=== PATIENT | male | born 1970 ===

== ENCOUNTER → 2017-08-16 | Day surgery (SDC) | payer OTHER ==
[~2017-08-16] VITALS: Ht 172.7 cm; Wt 85.0 kg
[~2017-08-16] MED LIST: ALBU2SYP9 NEB; ALBUT/IPRATROP 3MG/0.5MG NEB 3 ML VIAL INH ONE; ALBUT/IPRATROP 3MG/0.5MG NEB 3 ML VIAL ONE; ATROPINE SULFATE 0.1 MG/ML 5ML SYR IV PRN; CEFAZOLIN 2000MG IV PUSH 15 ML IV SCH; DEXAMETHASONE SOD INJ 4 MG/ML VIAL ONE; EpHEDrine SULFATE INJ 50 MG/ML AMP IV PRN; EpINEphrine INJ 1MG/ML AMP 1 MG/ML AMP ONE; FENTANYL CITRATE INJ 50 MCG/1 ML 2 ML VIAL ONE; FLUT0.15 NAE; HYDROmorphone INJ 1 MG/ML SYR IV PRN; LACTATED RINGER'S 1000ML 1,000 ML IV SCH; LIDO 2%/EPINEPHRINE 1:100000 20 ML VIAL INFIL ONE; LIDOCAINE 4% MPF SOAK 5 ML = 1 DOSE TOP ONE; LIDOCAINE HCL 2% 2 ML VIAL (20MG/ML) ONE; MIDAZOLAM HCL 1 MG/ML 2ML VIAL ONE; ONDANSETRON INJ 2 MG/ML 2 ML VIAL IV PRN; ONDANSETRON INJ 2 MG/ML 2 ML VIAL ONE; OXYC-57 PO; OXYCODONE/ACETAMINOPHEN 5-325 TAB PO PRN; PROMETHAZINE HCL INJ 12.5 MG in SODIUM CHLORIDE 0.9% 50ML 50 ML IV PRN; PROPOFOL IV EMULSION 10 MG/ML 20 ML VIAL IV ONE; PRVHFAIN INH; SODIUM CHLORIDE 0.9% 1000ML 1,000 ML IV SCH; SUCCINYLCHOLINE CHLORIDE 20 MG/ML 10 ML VIAL IV ONE
[2017-08-16 09:50] VITALS: Ht 172.7 cm; Wt 85.0 kg
--- NOTE | 2017-08-16 11:40 | History & Physical Bridge Note ---
H&P Re-Evaluation Bridge Note: I have examined the patient, reviewed the History & Physical and in the interval since the performance of the History & Physical I have noted the following changes of clinical significance: No changes noted
--- NOTE | 2017-08-16 11:42 | Discharge Instructions-SurgCtr ---
Discharge Instructions Date of Service Aug 16, 2017. Visit Reason for Visit: Chronic Sinusitis, Polyposis Discharge Discharge Diagnosis / Problem: same Discharge Goals Goal(s): Improve function Activity Recommendations Activity Limitations: resume your previous activity Anesthesia . Post Anesthesia Instructions: If you have had General Anesthesia or IV Sedation: * Do not drive today. * Resume driving when surgeon permits. * Do not make important decisions or sign legal documents today. * Call surgeon for: 1. Temperature elevations greater than 101 degrees F. 2. Uncontrollable pain. 3. Excessive bleeding. 4. Persistent nausea and vomiting. 5. Medication intolerance (nausea, vomiting or rash). * For nausea and vomiting use only clear liquids such as: tea, soda, bouillon until nausea subsides, then gradually increase diet as tolerated. * If you have any concerns or questions, call your surgeon's office. If physician is unavailable and it is an emergency, call 911 or go to the nearest emergency room. . Instructions / Follow-Up Instructions / Follow-Up ACTIVITY RECOMMENDATIONS: * Being up and around is good, but no strenuous activity, heavy lifting or physical exertion for one week. * Keep your head elevated 30 degrees when lying down or sleeping. * Do not blow your nose for 48 hours, sniff back instead. * Avoid hot showers. OVER THE COUNTER MEDICATIONS: * You may use Tylenol * Avoid aspirin or aspirin containing products, e.g. as they may increase bleeding. SPECIAL CARE INSTRUCTIONS: * Expect to have bloody drainage from your nose and/or down your throat for one to three days. Change drip pad as needed. * Begin irrigating your nose with saline solution today, at least six to ten times per day and sniff back to help remove old clots or crust. * You may experience nasal and facial congestion, pain and pressure, this is normal. * Please call with any significant and/or progressive pain, redness, swelling around the eyes, visual changes, fever of 101.5 degrees F, active bleeding or any problems or concerns. * If active bleeding occurs, spray the nose three times at one minute intervals with Afrin spray and call or cell phone: . If unable to reach the doctor, go to the nearest Emergency Department. Special Diet: * Avoid extremely hot fluids. FOLLOW UP VISIT: Follow-up Visit with Dr. Freeman If not already scheduled, please call to schedule. Diet Recommendations Home Diet: no limitations Pending Studies Studies pending at discharge: no Medical Emergencies . Who to Call and When: Medical Emergencies: If at any time you feel your situation is an emergency, please call 911 immediately. . Non-Emergent Contact Non-Emergency issues call your: Primary Care Provider . . "Provider Documentation" section prepared by Gianna Freeman. . [place] Drug Monitoring Program Search Results: no issues identified
--- NOTE | 2017-08-16 12:16 | History and Physical: Surg Cnt ---
History & Physical Date Aug 16, 2017. Chief Complaint polyps History of Present Illness The patient is a 46 year old male with complaints of polyps, loss of smell and taste, sinusitis, headaches, drainage aggravating asthma, s/p FESS in [place] 2014 Additional History Hepatic Disease: No Endocrine Disorder: No Kidney Disease: No Hypertension: No Heart Disease: No Bleeding Tendencies: No Infectious Diseases: No Allergies Coded Allergies: Vancomycin (Verified Allergy, Severe, blistering, swelling of joints, ) Iodine (Verified Allergy, Unknown, ., 08/16/17) Home Medications Scheduled Albuterol Sulf (Ventolin), NEB DAILY Fluticasone Propionate (Nasal) (Flonase Allergy Relief), VENESSA DAILY Scheduled PRN Albuterol (Ventolin Hfa), INH for ASTHMA Oxycodone/Acetaminophen 5MG/325MG (Percocet 5MG/325MG), 1-2 TABLETS PO Q4H PRN for Pain Physical Examination Skin: warm/dry, no rash Eyes: normal inspection, EOMI, sclerae normal ENT: + pertinent finding Head: normocephalic, atraumatic Neck: supple, no adenopathy, trachea midline Respiratory/Chest: lungs clear, normal breath sounds, no respiratory distress Cardiovascular: regular rate, rhythm, no edema, no murmur Abdomen / GI: normal bowel sounds, non tender Back: normal inspection Extremities: normal inspection, normal range of motion Diagnosis chronic sinusitis, polyposis Plan of Treatment endoscopic sinus surgery
--- NOTE | 2017-08-16 12:32 | HISTORY & PHYSICAL EXAMINATION ---
DATE OF ADMISSION: DIAGNOSES: Chronic sinusitis and nasal polyposis. HISTORY OF PRESENT ILLNESS: This 46-year-old male from [facility] presented with recurrent and chronic sinusitis and chronic nasal polyposis. He previously had surgery by another surgeon for polyposis in 2015, but again the polyps grew back. A CT scan showed a totally opacified pansinusitis from the polyps and the patient desires definitive treatment. PAST MEDICAL HISTORY: Medical problems positive for asthma, which is aggravated by the chronic sinusitis. In fact, it has caused moderate persistent asthma. PREVIOUS SURGERIES: Sinus surgery. ALLERGIES: None known. MEDICATIONS: Include Alvesco, Robaxin, Singulair, Ventolin, and fluticasone nasal spray. REVIEW OF SYSTEMS: Positive for low back pain, urinary calculus, asthma with recurrent bronchitis. PHYSICAL EXAMINATION: GENERAL: WNWD male in no acute distress. HEAD: Normocephalic. EYES: Normal. EARS: Tympanic membranes intact. NOSE: Nasal passages show occlusion with polyposis on both sides. THROAT: Oropharynx normal. NECK: Supple. HEART: RRR. LUNGS: Clear. ABDOMEN: Soft. GENITOURINARY: Deferred. EXTREMITIES: Full range of motion. IMAGING STUDIES: The CT scan showed complete opacification of bilateral frontal, bilateral ethmoid, bilateral sphenoid and bilateral maxillary sinus opacification. IMPRESSION: Chronic sinusitis with polyposis. PLAN: For an endoscopic sinus surgery.
--- NOTE | 2017-08-16 14:49 | [facility] Post Operative Brief Note ---
Immediate Operative Summary Operative Date Aug 16, 2017. Pre-Operative Diagnosis Chronic Sinusitis, Polyposis Post-Operative Diagnosis Same Procedure(s) Performed Endoscopic Sinus Surgery with [employer] Navigation, Right & Left Frontal Sinuses , Right &Left Sphenoid Sinuses, Right & Left Total Ethmoidectomies Surgeon Dr. Freeman Medication Assistant Surgeon(s) None Estimated Blood Loss 300ml Findings Consistent with Post-Op Diagnosis Specimens A. Right Ethmoid Contents and Polyp Drains None Anesthesia Type General Complication(s) none Disposition Accompanied Pt To Recovery: yes Disposition: Recovery Room / PACU
--- NOTE | 2017-08-16 15:05 | [facility] Operative Report ---
Operative Report Operative Date Aug 16, 2017. Pre-Operative Diagnosis Chronic Sinusitis, Polyposis Post-Operative Diagnosis Same Procedure(s) Performed Endoscopic Sinus Surgery with [employer] Navigation, Right & Left Frontal Sinuses , Right &Left Sphenoid Sinuses, Right & Left Total Ethmoidectomies Surgeon Dr. Freeman Roller Cleaner Surgeon(s) None Estimated Blood Loss 300ml Findings polyposis filling all the major sinuses, osteitis and adhesions Specimens A. Right Ethmoid Contents and Polyp Drains None Anesthesia Type General Complication(s) none Disposition yes Recovery Room / PACU Indications 46-year-old male with nasal polyposis, chronic sinusitis, loss of smell and taste, headaches, status post endoscopic sinus surgery in 2014 in [place] with prompt recurrence of polyposis Description of Procedure The patient was brought to the operating room and placed in the supine position. General endotracheal anesthesia was induced and he was prepped and draped in the usual sterile manner. [employer] device and calibrated and used for the entire procedure. The right sphenoid was cannulated with guidewire and dilated using the 6 mm balloon as was the left sphenoid sinus. The left nasal frontal duct was cannulated with guidewire and dilated using the 6 mm balloon, and the wire was left in place as a marker for frontal sinusotomy. Frontal sinusotomy was performed using the shaver couple with the [employer] device to remove the anterior wall and then the posterior wall of the Manisha nasi cell following the guidewire superiorly to open up the nasal frontal duct, leaving the mucosa there are intact. At this point total ethmoidectomy was performed going through the ground lamella through the previously opened bullae ethmoidalis going into the posterior ethmoid air cells which were totally filled with polyps opening up the ground lamella delineating the posterior most ethmoid air cell, delineating the skull base superiorly and lamina papyracea laterally, and then using the shaver couple with the [employer] device to exonerate all the posterior and then all the anterior ethmoid air cells up to the previously dilated nasal frontal duct. Maxillary sinus was opened by removing polyps from the previous wide maxillary antrostomy which was blocked with adhesions and polyps. The sphenoid was opened with the shaver following the previously dilated sphenoid ostia and then opening up the sphenoid laterally and inferiorly and then suctioning the sphenoid sinus clean. The right frontal sinusotomy sphenoidotomy total ethmoidectomy and maxillary antrostomy was performed in a similar manner again finding all the sinuses to be totally filled with polyps. The right frontal sinus was much more shallow than the left frontal sinus. Contours stents were placed in the nasal frontal ducts. Regular propel stents were placed in the middle meatus area into the sphenoid sinus. The patient tolerated procedure well and was taken recovery area in satisfactory condition. I attest to the content of the Intraoperative Record and any orders documented therein. Any exceptions are noted below.
[2017-08-16] MEDS: FENTANYL CITRATE INJ 50 MCG/1 ML 2 ML VIAL IV PRN ×4 (15:16→15:33)
[2017-08-16 15:44] VITALS: TEMP 37
[2017-08-16 16:03] VITALS: BP 151/88; PULSE 78; O2SAT 98
--- NOTE | 2017-08-16 16:11 | Anesthesia Progress Nt - [facility] ---
Anesthesia Post Op Note Date & Time Aug 16, 2017 at 16:11 Vital Signs Pain Intensity: 7 Vital Signs Past 12 Hours Date Time Temp Pulse Resp B/P (MAP) Pulse Ox O2 Delivery O2 Flow Rate FiO2 08/16/17 16:03 78 18 151/88 (109) 98 Room Air 08/16/17 15:44 37.0 75 18 153/99 (117) 96 Room Air 08/16/17 15:40 146/93 08/16/17 15:38 36.9 96 Room Air 08/16/17 15:37 83 16 97 08/16/17 15:37 84 16 08/16/17 15:36 154/90 08/16/17 15:35 76 13 98 08/16/17 15:35 77 13 08/16/17 15:30 79 17 140/102 98 08/16/17 15:30 79 17 08/16/17 15:25 73 12 08/16/17 15:25 75 12 159/98 100 08/16/17 15:23 159/99 08/16/17 15:21 162/106 08/16/17 15:20 70 11 100 08/16/17 15:20 70 11 08/16/17 15:19 75 12 08/16/17 15:19 76 12 100 08/16/17 15:16 168/101 08/16/17 15:14 78 12 100 08/16/17 15:14 76 12 08/16/17 15:11 170/98 08/16/17 15:09 89 22 92 08/16/17 15:09 89 22 08/16/17 15:05 161/99 08/16/17 15:04 36.3 81 16 176/97 100 Humidified Oxygen 8 Mask 08/16/17 09:57 36.7 76 18 129/83 (98) 98 Room Air Notes Mental Status: alert / awake / arousable, participated in evaluation Pt Amnestic to Procedure: Yes Nausea / Vomiting: adequately controlled Pain: adequately controlled Airway Patency, RR, SpO2: stable & adequate BP & HR: stable & adequate Hydration State: stable & adequate Anesthetic Complications: no major complications apparent
== END | disposition home or self-care (01) ==
LOC: X.SURG 09:32
PROVIDERS: ATTEND Otolaryngology
DX: J32.2 Chronic ethmoidal sinusitis (principal); J45.909 Unspecified asthma, uncomplicated; F17.200 Nicotine dependence, unspecified, uncomplicated